=== PATIENT | male | born 1935 | race Hispanic/Latino ===

== ENCOUNTER 2018-06-01 11:41 | Outpatient (CLI) | payer MEDICARE, OTHER | END 2018-06-01 11:42 | disposition home or self-care (01) | LOC: LAB 11:41 | DX: E55.9 Vitamin D deficiency, unspecified (principal); E11.9 Type 2 diabetes mellitus without complications ==

== ENCOUNTER 2018-07-01 10:45 | Outpatient (CLI) | payer MEDICARE, OTHER | END 2018-07-01 10:46 | disposition home or self-care (01) | LOC: RAD 10:45 ==